=== PATIENT | female | born 1965 | race Caucasian/White ===

== ENCOUNTER 2016-08-31 13:59 | Outpatient (CLI) | payer OTHER ==
--- NOTE | 2016-09-03 13:13 | DIAGNOSTIC IMAGING REPORT ---
PROCEDURE: MG BILATERAL DIAGNOSTIC W/CAD INDICATION: Follow-up left breast nodules and cyst. Previous left breast biopsy. TECHNIQUE: CC and MLO digital views of each breast. In addition, high-resolution left breast ultrasound was obtained in the lower outer left breast (18 mHz). COMPARISON: Comparison made to prior outside diagnostic mammogram, breast ultrasound, and stereotactic left biopsy studies from [facility] on 02/02/2016 FINDINGS: MAMMOGRAM: Computer-aided detection applied. Dense parenchymal pattern with asymmetric tissue, and scattered dystrophic and microcalcifications. There is a surgical micro clip in the upper central left breast with resolving surrounding soft tissue (consistent with resolving tissue biopsy edema/hemorrhage). There is no evidence of mass or suspicious calcification. BREAST ULTRASOUND: There is a 10 mm ovoid hypoechoic proteinaceous cyst or benign nodule in the lower outer left breast which is unchanged (0400 position). There is a 14 x 10 mm lobulated benign cyst in the lower outer left breast (0500 position) which has evolved from a microcystic structure on the prior study. IMPRESSION: 1. Negative mammogram. 2. There is a stable 10 mm nodule in the lower outer left breast (0400 position) consistent with a proteinaceous cyst or benign fibroadenoma. 3. There is a 14 x 10 mm benign cyst in the lower outer left breast (0500 position). 4. While there is no evidence of underlying abnormality, comparison with prior outside screening studies is still recommended. These will be sent for. If and when these become available, an addendum can be issued this report. 5. If comparison is stable, adjust bilateral mammogram schedule to August 2017 (to include left breast ultrasound). 6. Findings discussed with the patient. RESULT CODE: 0- Prior images needed. A. A negative report should not delay biopsy if a dominant or clinically suspicious mass is present. 10-15% of cancers are not identified by x-ray. B. A negative report may reinforce clinical impression. C. Adenosis and dense breasts may obscure an underlying neoplasm. D. False positive reports average 6-10%. E.. A yearly screening mammogram is recommended. A reminder letter will be scheduled.
== END 2016-08-31 23:00 ==
LOC: MAM SRH 13:59
DX: N63 Unspecified lump in breast (principal)